=== PATIENT | female | born 1940 | race Two or more races ===

== ENCOUNTER → 2016-07-28 | Outpatient (CLI) | payer MEDICARE, MEDICAID ==
[~2016-07-28] MED LIST: ASPIRIN-LOW81 MG ORAL; BUSPAR10 MG PO; CIPRO500 MG PO; FOLIC ACID1 MG ORAL; LOVAZA1 GM ORAL; MIRTAZAPINE30 MG ORAL; NEXIUM40 MG ORAL; PROPRANOLOL HCL20 MG ORAL; VITAMIN C500 M3 ORAL; VITAMIN D1000 UNI1 ORAL; VITAMIN D1000 UNI2 PO; ZETIA10 MG ORAL; ZOLOFT50 MG ORAL
[2016-07-28 14:39] VITALS: BP 98/61
--- NOTE | 2016-07-28 15:16 | GI Progress Note ---
Assessment/Plan Problems: (1) Constipated ICD Codes: K59.00 - Constipation, unspecified SNOMED: 37074075 (2) Gastritis ICD Codes: K29.70 - Gastritis, unspecified, without bleeding SNOMED: 1877907 (3) Hemorrhoids, internal ICD Codes: K64.8 - Other hemorrhoids SNOMED: 86584116 Status: stable Status Narrative Seen with Dr. Wagner. Assessment/Plan continue Nexium QOD with Zantac in between Rx Amitiza Rx Bentyl RTC x 1 months repeat colon x 2 years. Subjective Subjective GERD constipation, 3-4x weekly Abdominal spasms s/p teeth surgery Objective Last 24 Hour Vital Signs Date Time Temp Pulse Resp B/P Pulse Ox O2 Delivery O2 Flow Rate FiO2 07/28/16 14:39 98.4 74 16 98/61 General Appearance: no apparent distress, alert Cardiovascular: normal rate Respiratory/Chest: normal breath sounds, no respiratory distress Abdominal Exam: normal bowel sounds, non tender, soft Extremities: normal range of motion Objective Endoscopy Procedure Note Indication for Procedure: abd pain, GERD Procedures Performed: EGD, colonoscopy Operative Findings/Diagnosis: gastritis, diverticulosis KONG WAGNER - Mar 05, 2016 09:32 Monica Hennessy N.P. Jul 28, 2016 15:16
== END | disposition home or self-care (01) ==
LOC: PAN 14:10
DX: K29.70 Gastritis, unspecified, without bleeding (principal); K59.00 Constipation, unspecified; K64.8 Other hemorrhoids; K21.9 Gastro-esophageal reflux disease without esophagitis
CPT/HCPCS: 99211

== ENCOUNTER 2018-08-01 05:52 | Day surgery (SDC) | payer MEDICARE, MEDICAID ==
--- NOTE | 2018-07-31 08:42 | Pre-Procedure Note/Attestation ---
Pre-Procedure Note/Attestation Complete Prior to Procedure Planned Procedure: left Procedure Narrative: Blurry vision, difficulty reading and watching TV and driving. Indications for Procedure Pre-Operative Diagnosis: 1- Cataract left eye 2- Astigmatism left eye Attestation I attest that I discussed the nature of the procedure; its benefits; risks and complications; and alternatives (and the risks and benefits of such alternatives ), prior to the procedure, with the patient (or the patient's legal metals sales representative). I attest that, if there was a reasonable possibility of needing a blood transfusion, the patient (or the patient's legal metals sales representative) was given the [facility] standardized written summary, pursuant to the [place] Blood Safety Act ([place] Health and Safety Code # 1645, as amended). I attest that I re-evaluated the patient just prior to the surgery and that there has been no change in the patient's H&P, except as documented below: Prakash Garcia MD Jul 31, 2018 08:42
[~2018-08-01] VITALS: Ht 160 cm; Wt 50.8 kg
[2018-08-01] VITALS (7 sets, daily range): BP systolic 111–144; BP diastolic 70–80
[~2018-08-01 05:52] MED LIST changes: +Akten 3.5% 1ml Btl ONE; +Diclofenac Sod 0.1% Op Soln ONE; +Phenylephrine 10% Opth Soln 5ml ONE; +Tropicamide 1% Opth 15ml Soln ONE; +Vigamox Opth Soln 3ml ONE
[2018-08-01] MEDS: Diclofenac Sod 0.1% Op Soln LEFT EYE SCH ×3 (06:24→06:43)
[2018-08-01] MEDS: Vigamox Opth Soln 3ml LEFT EYE SCH ×3 (06:25→06:43)
[2018-08-01] MEDS: Phenylephrine 10% Opth Soln 5ml LEFT EYE SCH ×3 (06:25→06:43)
[2018-08-01] MEDS: Tropicamide 1% Opth 15ml Soln LEFT EYE SCH ×3 (06:25→06:43)
[2018-08-01] MEDS ORDERED: MELATONIN5 M5 ORAL (06:34)
[2018-08-01 06:49] LABS: BASOPHILS % (AUTO) 1.5 % (0.0-2.0); EOSINOPHILS % (AUTO) 3.2 % (0.0-3.0); HEMATOCRIT 39.8 % (37.0-47.0); HEMOGLOBIN 13.3 G/DL (12.0-16.0); LYMPHOCYTES % (AUTO) 39.7 % (20.0-45.0); MEAN CORPUSCULAR VOLUME 96 FL (80-99); MONOCYTES % (AUTO) 10.3 % (1.0-10.0); NEUTROPHILS % (AUTO) 45.3 % (45.0-75.0); PLATELET COUNT 199 K/UL (150-450); RED BLOOD COUNT 4.16 M/UL (4.20-5.40); RED CELL DISTRIBUTION WIDTH 11.4 % (11.6-14.8); WHITE BLOOD COUNT 4.6 K/UL (4.8-10.8)
[2018-08-01 07:05] LABS: ANION GAP 9 mmol/L (5-15); BLOOD UREA NITROGEN 17 mg/dL (7-18); CALCIUM 9.2 MG/DL (8.5-10.1); CARBON DIOXIDE 28 MMOL/L (21-32); CHLORIDE 105 MMOL/L (98-107); CREATININE 0.9 MG/DL (0.55-1.30); SODIUM 142 MMOL/L (136-145)
[2018-08-01] MEDS ORDERED: Carbachol 0.01% Op Soln 1.5ml vial ONE (07:06)
[2018-08-01] MEDS ORDERED: Lidocaine 1% MPF 10mg/ml 5ml ONE ×2 (07:06→07:23)
[2018-08-01] MEDS ORDERED: EPINEPHrine 1mg/1ml Amp ONE (07:06)
[2018-08-01] MEDS ORDERED: Povidone-Iodine 5% opth solution ONE (07:07)
[2018-08-01] MEDS ORDERED: BSS 500ml btl ONE (07:07)
[2018-08-01] MEDS ORDERED: BSS 15ml BTL ONE (07:07)
[2018-08-01] MEDS ORDERED: Dexamethasone 4mg/ml vial ONE (07:08)
[2018-08-01] MEDS ORDERED: Sodium Hyaluronate 10 mg/ml 0.85ml ONE ×2 (07:08→12:23)
[2018-08-01] MEDS ORDERED: Tetracaine 0.5% Opth 4ml Soln ONE (07:08)
--- NOTE | 2018-08-01 07:19 | Anethesia Preoperative Eval ---
Anesthesia Pre-op PMH/ROS General Date of Evaluation: Aug 01, 2018 Anesthesiologist: Nick ASA Score: ASA 3 Mallampati Score Class I : Soft palate, uvula, fauces, pillars visible Class II: Soft palate, uvula, fauces visible Class III: Soft palate, base of uvula visible Class IV: Only hard plate visible Mallampati Classification: Class II Surgeon: Radha Diagnosis: Left cataract Surgical Procedure: Left cataract extraction with IOL Anesthesia History: none Family History: no anesthesia problems Allergies: Coded Allergies: No Known Allergies (Unverified , 11/13/12) Medications: see eMAR Patient NPO?: Yes NPO Date: Jul 31, 2018 NPO Time: 22:00 Past Medical History Cardiovascular: Reports: HTN, other - HLD; Denies: CAD, CO, valve dz, arrhythmia Pulmonary: Denies: asthma, COPD, TITO, other Gastrointestinal/Genitourinary: Reports: GERD - gastritis; Denies: CRI, ESRD, other Neurologic/Psychiatric: Reports: depression/anxiety; Denies: dementia, CVA, TIA, other Endocrine: Denies: DM, hypothyroidism, steroids, other HEENT: Reports: cataract (L); Denies: cataract (R), glaucoma, NANW[place]K (L), NANWALEK (R), other Hematology/Immune: Reports: other - left breast cancer s/p mastectomy and radiation; Denies: anemia, DVT, bleeding disorder Musculoskeletal/Integumentary: Reports: OA; Denies: RA, DJD, DDD, edema, other PSxH Narrative: JUJU/BSO, left breast mastectomy, hemorrhoidectomy, right cataract Anesthesia Pre-op Phys. Exam Physician Exam Last Vital Signs Date Time Temp Pulse Resp B/P (MAP) Pulse Ox O2 Delivery O2 Flow Rate FiO2 08/01/18 06:29 98.2 62 20 144/79 98 Room Air Constitutional: NAD Cardiovascular: RRR Respiratory: CTA Airway Exam Mallampati Score: Class II MO: limited ROM: limited Anesthesia Pre-op A/P Labs Hematology Test 08/01/18 06:25 White Blood Count 4.6 K/UL (4.8-10.8) L Red Blood Count 4.16 M/UL (4.20-5.40) L Hemoglobin 13.3 G/DL (12.0-16.0) Hematocrit 39.8 % (37.0-47.0) Mean Corpuscular Volume 96 FL (80-99) Mean Corpuscular Hemoglobin 32.0 PG (27.0-31.0) H Mean Corpuscular Hemoglobin Concent 33.5 G/DL (32.0-36.0) Red Cell Distribution Width 11.4 % (11.6-14.8) L Platelet Count 199 K/UL (150-450) Mean Platelet Volume 6.7 FL (6.5-10.1) Neutrophils (%) (Auto) 45.3 % (45.0-75.0) Lymphocytes (%) (Auto) 39.7 % (20.0-45.0) Monocytes (%) (Auto) 10.3 % (1.0-10.0) H Eosinophils (%) (Auto) 3.2 % (0.0-3.0) H Basophils (%) (Auto) 1.5 % (0.0-2.0) Chemistry Test 08/01/18 06:25 Sodium Level 142 MMOL/L (136-145) Potassium Level 4.0 MMOL/L (3.5-5.1) Chloride Level 105 MMOL/L (98-107) Carbon Dioxide Level 28 MMOL/L (21-32) Anion Gap 9 mmol/L (5-15) Blood Urea Nitrogen 17 mg/dL (7-18) Creatinine 0.9 MG/DL (0.55-1.30) Estimat Glomerular Filtration Rate mL/min (>60) Glucose Level 84 MG/DL (74-106) Calcium Level 9.2 MG/DL (8.5-10.1) Studies Pre-op Studies: EKG - sr Risk Assessment & Plan Assessment: ASA III Plan: MAC Status Change Before Surgery: No Pre-Antibiotics Drug: N/A Mrailyn Cheung MD Aug 01, 2018 07:19
[2018-08-01] MEDS ORDERED: LR 1000ml 1,000 ML IVLG SCH (07:22)
[2018-08-01] MEDS ORDERED: Propofol 200mg/20ml IV ONE (07:23)
[2018-08-01] MEDS ORDERED: Midazolam 2mg/2ml Inj ONE (07:24)
[2018-08-01] MEDS ORDERED: fentaNYL 100 mcg/2 mL IV ONE (07:24)
[2018-08-01] MEDS ORDERED: LR 1000ml ONE (07:30)
[2018-08-01] MEDS ORDERED: LORazepam Inj 2mg/ml 1ml IV PRN (07:30)
[2018-08-01] MEDS ORDERED: Akten 3.5% 1ml Btl LEFT EYE ONE (07:30)
[2018-08-01] MEDS ORDERED: Sterile Water Irrig 1000ml IRRIG ONE (07:30)
[2018-08-01] MEDS ORDERED: NS Irrig 1000ml ONE (07:30)
[2018-08-01] MEDS ORDERED: DiphenhydrAMINE 50mg/ml Inj IVP PRN (07:30)
--- NOTE | 2018-08-01 08:20 | Immediate Post-Op Evaluation ---
Immediate Post-Op Evalulation Immediate Post-Op Evalulation Procedure: Left cataract extraction with IOL Date of Evaluation: Aug 01, 2018 Time of Evaluation: 08:23 IV Fluids: 300 Blood Products: 0 Estimated Blood Loss: 0 Urinary Output: 0 Blood Pressure Systolic: 137 Blood Pressure Diastolic: 80 Pulse Rate: 64 Respiratory Rate: 12 O2 Sat by Pulse Oximetry: 96 Temperature (Fahrenheit): 97 Pain Score (1-10): 0 Nausea: No Vomiting: No Complications 0 Patient Status: awake, reacts, patent, none Hydration Status: adequate Drug: N/A Marilyn Cheung MD Aug 01, 2018 08:20
--- NOTE | 2018-08-01 08:20 | 48 Hour Post Anesthesia Eval ---
Post Anesthesia Evaluation Procedure: Left cataract extraction with IOL Date of Evaluation: Aug 01, 2018 Airway: patent Nausea: No Vomiting: No Pain Intensity: 0 Hydration Status: adequate Cardiopulmonary Status: at baseline Mental Status/LOC: patient returned to baseline Post-Anesthesia Complications: 0 Follow-up care needed: ready to discharge Marilyn Cheung MD Aug 01, 2018 08:20
[2018-08-01] MEDS ORDERED: acetaZOLAMIDE 125mg tab ONE (08:22)
[2018-08-01] MEDS ORDERED: acetaZOLAMIDE 125mg tab ORAL SCH (09:00)
--- NOTE | 2018-08-01 10:04 | Discharge Summary ---
Discharge Summary Discharge Summary Discharge Summary DATE OF ADMISSION:08/01/18 DATE OF DISCHARGE: 08/01/18 REASON FOR HOSPITALIZATION:1- Cataract left eye 2- Astigmatism SURGERY PERFORMED: 1- cataract extraction with phaco 2- LRI OS CONDITION IN THE HOSPITAL:The patient tolerated the surgery without complications. DISCHARGE CONDITION: The patient was stable at discharge. DISCHARGE MEDICATIONS: 1. Vigamox eye drops one drop q.i.d, OS 2. Prednisolone one drop q.i.d, OS 3. Prolensa one drop QD, OS POSTOPERATIVE ORDERS: The patient has to rest at home. No bending, No lifting, No watching Television tonight. POSTOPERATIVE FOLLOW UP: The patient will be followed in my office tomorrow morning at 7 o'clock. Prakash Garcia MD Aug 01, 2018 10:04
--- NOTE | 2018-08-01 10:08 | Brief Operative Note ---
Immediate Post Operative Note Operative Note Chief Complaint: Blurry vision, left eye , difficulty reading and watching Tv Pre-op Diagnosis: 1- Cataract left eye 2- Astigmatism left eye Procedure: 1- Cataract extraction with phaco and PC IOL implantation, left eye 2- Limbal relaxing incision ( LR I ), left eye. Post-op Diagnosis: same as pre-op Surgeon: Prakash Garcia MD [employer] Operator: None Additional Surgeons: NOne Anesthesiologist: Dr. Romero Anesthesia: MAC Specimen: none Complications: none Condition: stable Fluids: 300ml Estimated Blood Loss: none Drains: none Implant(s) used?: Yes - Monofocal PC IOL implanted in the left eye without complication Prakash Garcia MD Aug 01, 2018 10:08
--- NOTE | 2018-08-02 04:00 | Operative Note - Dictated ---
DATE OF OPERATION: 08/01/2018 FACILITY: [facility]. SURGEON: Prakash Garcia M.D. PORTABLE TRACKMAN: None. ANESTHESIOLOGIST: Dr. Romero. ANESTHESIA: Monitored anesthesia care (MAC). PREOPERATIVE DIAGNOSES: 1. Cataract, left eye. 2. Astigmatism, left eye. POSTOPERATIVE DIAGNOSES: 1. Cataract, left eye. 2. Astigmatism, left eye. SURGERY PERFORMED: 1. Cataract extraction with phacoemulsification and posterior chamber intraocular lens implantation in the left eye. 2. Limbal-relaxing incision (LRI), left eye. INDICATION FOR SURGERY: The patient is a 78-year-old lady with history of arthritis, hypertension, hypercholesterolemia, and breast cancer. She is taking medications including folic acid, , ropinirole 20 mg a day, Senokot 100 mg a day, methylprednisolone 4 mg a day, ezetimibe 10 mg, Amitiza 24 mcg, gabapentin 300 mg, mirtazapine 30 mg, sertraline 50 mg, and omeprazole 40 mg a day. She is not a drinker. She is not a smoker. The patient is not allergic to any medication. The patient is not employed. She is complaining of blurred vision in the left eye. She has had cataract surgery in the right eye three weeks ago and she is happy with the results. On examination of the left eye, the cornea is clear. Anterior chamber is clean and quiet, but a bit shallow. Pupillary reflex is normal. There is no RAPD. There is 4+ nuclear sclerosis and 2+ cortical cataract in the left eye. Funduscopy shows normal optic disc, normal macula, and periphery retina is flat. To improve her vision in the left eye, the cataract has to be removed and posterior chamber intraocular lens has to be implanted. The patient has they cannot do the cataract surgery unless they put her under general anesthesia and they might need laser for treatment of . When I saw her, I promised her that I am going to do phacoemulsification and she does not need general anesthesia. To improve her vision in the left eye, the cataract has to be removed and posterior chamber intraocular lens has to be implanted and astigmatism has to be addressed as well. INFORMED CONSENT: The nature of the surgery, risks, benefits, alternatives, and potential complications were all explained in detail to the patient. The potential complications including, but not limited to bleeding, infection, posterior capsular rupture, lens subluxation, flat anterior chamber, iris prolapse, uveitis, corneal edema, macular edema, endophthalmitis, retinal detachment, loss of vision, loss of the eye, and even were all explained in detail to the patient. The patient voiced understanding. The alternatives including accommodating lens, multifocal lens, toric lens, and conventional cataract surgery with limbal relaxing incision (LRI) for treatment of astigmatism were all explained in detail to the patient. The patient voiced understanding. The patient elected to have only conventional cataract surgery with limbal relaxing incision for treatment of astigmatism. Then, she signed the consent form, which is in the chart. DESCRIPTION OF SURGERY AND FINDINGS: Following that, the patient was taken to the operation room in a stable condition. Lidocaine gel, Akten 3.5% were applied to the conjunctiva of the left eye. IV sedation was given by the anesthesiologist, Dr. Romero. After adequate anesthesia and sedation had been achieved, the left eye was prepped and draped in the sterile fashion for intraocular surgery. Following that, a speculum was placed in the left eye. Before the patient was taken to the operating room, the cornea was marked at 180 and 90 meridian. In the operation room, using a corneal marker and marking pen, the steep meridian of the cornea was marked. Following that, using a larry knife with 550 micron blade, two parallel incisions were placed on the steep meridian of the cornea to treat astigmatism. Following that, using a Super Sharp knife, a clear corneal side port was created. 1% lidocaine without preservative (MPF) was injected into the anterior chamber. Viscoelastic agent, Healon was injected into the anterior chamber. Following that, using a 2.8 mm keratome, a clear corneal temporal keratotomy was performed. Viscoelastic agent was injected into the anterior chamber again. Under the viscoelastic agent, an anterior capsulotomy was performed in the fashion of capsulorrhexis beautifully. Following that, whole viscoelastic agent was removed from the anterior chamber. Following that, using balanced salt solution, hydrodissection and hydrodelineation was performed and the nucleus was freed. Following that, whole viscoelastic agent was removed from the anterior chamber. Following that, hydrodissection and hydrodelineation was performed with balanced salt solution. Following that, clear viscoelastic agent was injected into the anterior chamber again to protect the endothelium of the cornea. Following that, cortical material was removed from the capsular bag using irrigation-aspiration unit. Following that, the capsular bag was polished. Following that, the capsular bag was filled with viscoelastic agent, Healon. Following that, a +23.0 diopter ZCB00 foldable PCIOL with serial number [id number] was injected into the capsular bag. Using a Sinskey hook, the lens was manipulated within the proper position. Whole viscoelastic agent was removed from the anterior posterior part of the lens. The anterior chamber was filled with balanced salt solution and the wound was hydrated with balanced salt saline solution. Following that, the wound was checked for leakage, there was no leakage. Vigamox eyedrops were applied to the conjunctiva of the left eye. The patient tolerated the surgery without complications. At the end of the surgery, the eye was patched with a clear sterile fenestrated shield. Following that, the patient was transferred to the recovery room. In the recovery room, 125 mg Diamox was given by mouth stat. Postoperative orders and directions were given to the patient. The patient will be discharged home upon stabilization. The patient will be followed in my office tomorrow morning. Prakash Garcia M.D. DR: AUGUSTUS JOB#: [id number] CC:
== END 2018-08-01 09:45 | disposition home or self-care (01) ==
LOC: SUR 05:52
DX: H25.12 Age-related nuclear cataract, left eye (principal); H25.012 Cortical age-related cataract, left eye; H52.202 Unspecified astigmatism, left eye; M19.90 Unspecified osteoarthritis, unspecified site; E78.00 Pure hypercholesterolemia, unspecified; I10 Essential (primary) hypertension; Z85.3 Personal history of malignant neoplasm of breast; Z79.82 Long term (current) use of aspirin; E78.5 Hyperlipidemia, unspecified; F32.9 Major depressive disorder, single episode, unspecified; Z90.710 Acquired absence of both cervix and uterus; K21.9 Gastro-esophageal reflux disease without esophagitis; F41.9 Anxiety disorder, unspecified; Z90.12 Acquired absence of left breast and nipple
CPT/HCPCS: 36415; 66984; 66999; 80048; 85025; J0171; J1100; J1200; J2250; J2704; J3010; V2632; 94003; 94150